=== PATIENT | female | born 1990 | race Caucasian/White ===

== ENCOUNTER 2016-11-06 22:50 | Emergency (ER) | payer BC, OTHER ==
[~2016-11-06] VITALS: Ht 167.6 cm; Wt 68.2 kg
[2016-11-06 22:53] VITALS: TEMP 98.5; Ht 167.6 cm; Wt 68.2 kg
[2016-11-06] MEDS ORDERED: SOD CHLORIDE 0.9% 1,000 ML IV STA (23:56)
[2016-11-07 00:09] LABS: ADD SCAN DIFF NO
[2016-11-07 00:10] LABS: BASOPHILS % 0.2 % (0.0-2.0); EOSINOPHILS # 0.1 10^3/ul (0.0-0.5); EOSINOPHILS % 0.7 % (0.0-7.0); HEMATOCRIT 43.4 % (37.0-47.0); HEMOGLOBIN 14.7 g/dl (12.0-16.0); LYMPHOCYTES # 3.1 10^3/ul (0.8-2.9); LYMPHOCYTES % 37.6 % (15.0-51.0); MEAN CORPUSCULAR HEMOGLOBIN 29.3 pg (29.0-33.0); MEAN CORPUSCULAR HGB CONC 33.9 g/dl (32.0-37.0); MEAN CORPUSCULAR VOLUME 86.6 fl (82.0-101.0); MONOCYTE # 0.5 10^3/ul (0.3-0.9); MONOCYTES % 5.4 % (0.0-11.0); NEUTROPHIL # 4.7 10^3/ul (1.6-7.5); NEUTROPHILS % 55.9 % (39.0-77.0); PLATELET COUNT 304 10^3/UL (140-415); RED BLOOD COUNT 5.01 10^6/ul (4.20-5.40); RED CELL DISTRIBUTION WIDTH 12.6 % (11.5-14.5); WHITE BLOOD COUNT 8.4 10^3/ul (4.8-10.8)
[2016-11-07 00:22] LABS: CALCIUM 9.6 mg/dl (8.4-10.2); CREATININE 0.89 mg/dl (0.44-1.00); POTASSIUM 3.2 mmol/L (3.5-5.1)
--- NOTE | 2016-11-07 01:19 | ERD ---
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 The patient states to me that she has been having recurrent syncope since the age of 17. The patient states that she has been in the rehab facility and has been sober for the past 4 days. She says she was heating up a hot pocket to eat and standing by the microwave when she passed out. She says that her first symptom is her hearing goes away in the room goes dark. She says she has had some multiple occasions and has had 4 episodes over the past 6 months. She says she has had extensive workups they do not know why she keeps passing out. She has no complaints of headache neck pain chest pain back pain extremity pain abdominal pain vomiting diarrhea no recent illness. No withdrawal symptoms with tremors ,seizure activity ROS All systems reviewed and are negative except as per history of present illness. PMhx/Soc Medical and Surgical Hx: pt denies Medical Hx, pt denies Surgical Hx Hx Alcohol Use: No Hx Substance Use: Yes (HEROIN,METH, COCAINE, BENZOS) Hx Tobacco Use: Yes Smoking Status: Current every day smoker FmHx Family History: No coronary disease Physical Exam Vitals Vital Signs Date Time Temp Pulse Resp B/P Pulse Ox O2 Delivery O2 Flow Rate FiO2 11/07/16 00:20 79 95/69 93 102/77 117 103/76 11/06/16 22:53 98.5 87 18 121/81 100 Room Air 11/06/16 22:53 98.5 87 18 121/81 100 Physical Exam Const: Well-developed, well-nourished Head: Atraumatic, normocephalic Eyes: Normal Conjunctiva, PERRLA, EOMI, normal sclera, no nystagmus ENT: Normal External Ears, Nose and Mouth, moist mucus membranes. Neck: Full range of motion. No meningismus, no lymphadenopathy. Resp: Clear to auscultation bilaterally, no wheezing, rhonchi, rales Cardio: Regular rate and rhythm, no murmurs, S1 S2 present Abd: Soft, non tender x 4, non distended. Normal bowel sounds, no guarding or rebound, no pulsitile abdominal masses or bruits Skin: No petechiae or rashes, no ecchymosis , no maculopapular rash Back: No midline or flank tenderness Ext: No cyanosis, or edema, FROM x 4, normal inspection, neurovascularly intact x 4 Neur: Awake and alert, STR 5/5 x 4, sensation intact x 4, no focal findings, cerebellum intact Psych: Normal Mood and Affect Result Diagram: 11/06/16 2300 11/06/16 2300 Results 24 hrs Laboratory Tests Test 11/06/16 23:00 White Blood Count 8.410^3/ul Red Blood Count 5.0110^6/ul Hemoglobin 14.7g/dl Hematocrit 43.4% Mean Corpuscular Volume 86.6fl Mean Corpuscular Hemoglobin 29.3pg Mean Corpuscular Hemoglobin Concent 33.9g/dl Red Cell Distribution Width 12.6% Platelet Count 93695^3/UL Mean Platelet Volume 9.0fl Neutrophils % 55.9% Lymphocytes % 37.6% Monocytes % 5.4% Eosinophils % 0.7% Basophils % 0.2% Nucleated Red Blood Cells % 0.0/100WBC Neutrophils # 4.710^3/ul Lymphocytes # 3.110^3/ul Monocytes # 0.510^3/ul Eosinophils # 0.110^3/ul Basophils # 0.010^3/ul Nucleated Red Blood Cells # 0.010^3/ul Sodium Level 138mmol/L Potassium Level 3.2mmol/L Chloride Level 103mmol/L Carbon Dioxide Level 24mmol/L Anion Gap 14 Blood Urea Nitrogen 9mg/dl Creatinine 0.89mg/dl Glucose Level 153mg/dl Calcium Level 9.6mg/dl Current Medications Medications (Trade) Dose Ordered Sig/Gaurav Route PRN Reason Start Time Stop Time Status Last Admin Dose Admin Sodium Chloride (NS) 1,000 ml @ 1,000 mls/hr Q1H STAT IV 11/06/16 23:56 11/07/16 00:55 DC 11/07/16 00:28 Procedures/MDM EKG: Rate/Rhythm: Normal Sinus Rhythm,NL intervals QRS, ST, QT: NORMAL FL, QRS, QT] Impression: NORMAL EKG Orthostatics are positive She received IV fluids. The patient is syncopal with positive orthostatics likely is the reason. She has volume depletion. We will discharge home with careful follow-up. Patient has had multiple syncopal episodes in the past with multiple extensive workups according to the patient Departure Diagnosis: Primary Impression: Volume depletion Additional Impression: Syncope Syncope type: unspecified Qualified Code: R55 - Syncope, unspecified syncope type Condition: Stable Patient Instructions: Dehydration (6Y-Adult), Syncope, Unk Cause DEIDRA GUILLERMO DO November 07, 2016 01:19
[2016-11-07 01:33] VITALS: BP 103/76; PULSE 72; RESP 19
== END 2016-11-07 01:33 | disposition home or self-care (01) ==
LOC: E/R 22:50
DX: E86.9 Volume depletion, unspecified (principal); F17.210 Nicotine dependence, cigarettes, uncomplicated
CPT/HCPCS: 36415; 80048; 85025; 93005; 99284; J7030